=== PATIENT | male | born 1985 | race Caucasian/White ===

== ENCOUNTER 2017-07-25 19:00 | Emergency (ER) | payer OTHER, SELFPAY ==
[2017-07-25 19:21] VITALS: BP 143/89; PULSE 99; RESP 20; TEMP 37.2; O2SAT 98; BMI 24.1
--- NOTE | 2017-07-25 19:39 | HMH.EDUTC ---
[facility] [place] Clinical Impression: Medication refill, External auditory canal pruritus Disposition: Home, Self-Care Condition on Discharge: Good Additional Instructions: It has been too long since you have been taking these medications per the pharmacies you provided. Therefore, you need to follow up with a primary care doctor in order to restart these medications. Discussed possible differentials for bao EAC. Consistent w/ psoriasis. If flares back up, seek medical treatment. * we have provided you with a list of providers accepting patients. I would encourage you find a new primary care provider and make an appt IVETTE as it can take weeks to get a new patient appointment. Time of Disposition: 19:50 Medical Decision Making - Mane Inquiry Pt receiving controlled substance: No Vital Signs: 07/25/17 19:21 07/25/17 19:50 Temperature 98.9 F 98.9 F Temperature Source Temporal Artery Scan Pulse Rate 99 H Pulse Rate [Brachial] 99 H Respiratory Rate 20 20 Blood Pressure 143/89 Blood Pressure [Right Arm] 143/89 Blood Pressure Mean [Right Arm] 107 Blood Pressure Source [Right Arm] Automatic Cuff Blood Pressure Position [Right Arm] Sitting 02 Sat by Pulse Oximetry 98 Oxygen Delivery Method Room Air - Reevaluation(s) Reevaluation #1: Pt reports last pharmacy as [facility]. According to med rec, Vistaril and wellbutrin last filled at on 03/28/17. Asked pt if any other pharmacy possibly and reports [facility] on [address]. Called there. Ran full [facility] report. Only medications were acyclovir last filled 04/26/17 and viagra last filled 07/13/17. No record of ever filling vistaril or wellbutrin. Discussed with pt. Aware considering length of time since last refill, lack of any recent primary care, and viagra prescription on 07/13/17, I would not refill medications at this time and instead, I could help get him in to a local primary care provider. He states [facility] is full of shit and he can prove it. Walks out and says he will return at a later time with bottles to prove they are wrong . Refuses to sign discharge papers [facility] [place] - General Stated complaint: Medications need to be refilled Time Seen by Provider: 07/25/17 19:39 Mode of Arrival: Ambulatory Source of Information: Patient Limitations: No Limitations Description of Symptoms (Recalled from Triage Doc. by RN): PT IS BEING SEEN FOR MEDICATION REFILLS AND WOULD ALSO LIKE TO BE SEEN FOR SORES IN BOTH EARS THAT HAVE BEEN THERE FOR SOME TIME. PT STATES HE HAS NOTICED PUS DRAINING FROM THE LT EAR. HEENT Symptoms (Recalled from RN notes): No Resp Symptoms (Recalled from RN notes): No Skin Symptoms (Recalled from RN notes): Yes MS Symptoms (Recalled from RN notes): No Functional Status (Recalled from RN notes): NA - History of Present Illness Provider Complaint: Here requesting refills on vistaril, wellbutrin, viagra and acyclovir. Reports a hx of anxiety, depression, erectile dysfx and cold sores. States he is not out of the medications but will be soon. Recently moved to [place]. having trouble finding a PCP that doesn't take 6-8 months to get an appt. Hasn't tried in [place]. Dx Hep C Mar 2017. Had appt at May 2017 but was an hour late. Discusses how upset he is they wouldn't see him just an hour late . Rescheduled to July 2017. States medications last filled by [facility] in [place]. Denies ever seeing primary care for medications. That doctor at the [facility] understood all I have been through and agreed to prescribe them all . Also requesting bao ear exam. years of itchy, flaky ear canals that at times, have drainage. They are much better today then they were weeks ago . Hx of flaky rash at times on scalp and mustache as well, not currently. No treatment. - Related Data Home Medications Medication Instructions Recorded Confirmed Acyclovir [Acyclovir] 800 mg PO DAILY 07/25/17 07/25/17 buPROPion HCl [Wellbutrin 100mg 100 mg PO BID 07/25/17 07/25/17 Tablet
--- NOTE | 2017-07-25 19:46 | PC.NURSE ---
CONTACTED [facility] ON [address] TO CONFIRM LAST REFILL ON MEDICATIONS. ACYCLOVIR, VIAGRA, NO OTHER MEDICATIONS REFILLED.
--- NOTE | 2017-07-25 19:49 | ED_ITS ---
[facility] [place] Clinical Impression: Medication refill, External auditory canal pruritus Disposition: Home, Self-Care Condition on Discharge: Good Additional Instructions: It has been too long since you have been taking these medications per the pharmacies you provided. Therefore, you need to follow up with a primary care doctor in order to restart these medications. Discussed possible differentials for bao EAC. Consistent w/ psoriasis. If flares back up, seek medical treatment. * we have provided you with a list of providers accepting patients. I would encourage you find a new primary care provider and make an appt IVETTE as it can take weeks to get a new patient appointment. Time of Disposition: 19:50 Medical Decision Making - Mane Inquiry Pt receiving controlled substance: No Vital Signs: 07/25/17 19:21 07/25/17 19:50 Temperature 98.9 F 98.9 F Temperature Source Temporal Artery Scan Pulse Rate 99 H Pulse Rate [Brachial] 99 H Respiratory Rate 20 20 Blood Pressure 143/89 Blood Pressure [Right Arm] 143/89 Blood Pressure Mean [Right Arm] 107 Blood Pressure Source [Right Arm] Automatic Cuff Blood Pressure Position [Right Arm] Sitting 02 Sat by Pulse Oximetry 98 Oxygen Delivery Method Room Air - Reevaluation(s) Reevaluation #1: Pt reports last pharmacy as [facility]. According to med rec, Vistaril and wellbutrin last filled at on 03/28/17. Asked pt if any other pharmacy possibly and reports [facility] on [address]. Called there. Ran full [facility] report. Only medications were acyclovir last filled 04/26/17 and viagra last filled 07/13/17. No record of ever filling vistaril or wellbutrin. Discussed with pt. Aware considering length of time since last refill, lack of any recent primary care, and viagra prescription on 07/13/17, I would not refill medications at this time and instead, I could help get him in to a local primary care provider. He states [facility] is full of shit and he can prove it. Walks out and says he will return at a later time with bottles to prove they are wrong . Refuses to sign discharge papers [facility] [place] - General Stated complaint: Medications need to be refilled Time Seen by Provider: 07/25/17 19:39 Mode of Arrival: Ambulatory Source of Information: Patient Limitations: No Limitations Description of Symptoms (Recalled from Triage Doc. by RN): PT IS BEING SEEN FOR MEDICATION REFILLS AND WOULD ALSO LIKE TO BE SEEN FOR SORES IN BOTH EARS THAT HAVE BEEN THERE FOR SOME TIME. PT STATES HE HAS NOTICED PUS DRAINING FROM THE LT EAR. HEENT Symptoms (Recalled from RN notes): No Resp Symptoms (Recalled from RN notes): No Skin Symptoms (Recalled from RN notes): Yes MS Symptoms (Recalled from RN notes): No Functional Status (Recalled from RN notes): NA - History of Present Illness Provider Complaint: Here requesting refills on vistaril, wellbutrin, viagra and acyclovir. Reports a hx of anxiety, depression, erectile dysfx and cold sores. States he is not out of the medications but will be soon. Recently moved to [place]. having trouble finding a PCP that doesn't take 6-8 months to get an appt. Hasn't tried in [place]. Dx Hep C Mar 2017. Had appt at May 2017 but was an hour late. Discusses how upset he is they wouldn't see him just an hour late . Rescheduled to July 2017. States medications last filled by [facility] in [place]. Denies ever seeing primary care for medications. That doctor at the [facility] understood all I have been through and agreed to prescribe them all . Also r
[2017-07-25 19:50] VITALS: BP 143/89; PULSE 99; RESP 20; TEMP 37.2; O2SAT 98
== END 2017-07-25 19:54 | disposition home or self-care (01) ==
PROVIDERS: Emergency Provider Nurse Practitioner Family
DX: Z76.0 Encounter for issue of repeat prescription (principal); L29.9 Pruritus, unspecified; F41.8 Other specified anxiety disorders
CPT/HCPCS: 99201

== ENCOUNTER → 2018-03-19 18:50 | Outpatient (CLI) | payer OTHER, SELFPAY ==
[2018-03-19 20:18] LABS: T4 (Thyroxine) 9.2 ug/dl (4.7-13.3); Thyroid Stimulating Hormone 2.21 uIU/ml (0.358-3.740)
[2018-03-19 20:27] LABS: C-Reactive Protein < 0.2 mg/L (0.0-0.9)
[2018-03-19 21:41] LABS: Erythrocyte Sedimentation Rate 4 mm/hr (0-15)
[2018-03-19 22:16] LABS: Basophils % 0.5 % (0.1-2.0); Eosinophils # 0.2 K/mm3 (0.0-0.4); Eosinophils % 3.4 % (0.1-12.0); Hematocrit 45.1 % (42.0-52.0); Hemoglobin 14.6 g/dL (14.1-18.0); Lymphocytes % 32.9 % (10-50); Mean Corpuscular HGB Conc 32.4 g/dL (31.8-35.4); Mean Corpuscular Hemoglobin 30.6 pg (27.0-31.2); Mean Corpuscular Volume 94.6 fl (80-94); Mean Platelet Volume 8.3 fl (7.4-10.4); Monocytes # 0.6 K/mm3 (0.1-1.0); Monocytes % 9.5 % (1.7-9.3); Neutrophils # 3.2 K/mm3 (1.8-7.8); Neutrophils % 53.9 % (37.0-80.0); Platelet Count 264 K/mm3 (142-424); Red Blood Count 4.76 M/mm3 (4.60-6.20); Red Cell Distribution Width 14.8 % (11.5-17.5)
== END ==
PROVIDERS: Visit Provider Emergency Medicine
DX: B19.20 Unspecified viral hepatitis C without hepatic coma (principal); F41.9 Anxiety disorder, unspecified; Z76.89 Persons encountering health services in other specified circumstances
CPT/HCPCS: 84436; 84443; 85025; 85651; 86140